=== PATIENT | male | born 1990 | race Caucasian/White ===

== ENCOUNTER 2018-03-24 10:39 | Emergency (ER) | payer OTHER ==
[2018-03-24 13:38] VITALS: BP 126/80
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
== END 2018-03-24 14:51 | disposition home or self-care (01) ==
LOC: UCCORT 10:39
DX: S16.1XXA Strain of muscle, fascia and tendon at neck level, initial encounter (principal); V47.5XXA Car driver injured in collision with fixed or stationary object in traffic accident, initial encounter; Y92.410 Unspecified street and highway as the place of occurrence of the external cause; M25.512 Pain in left shoulder; M25.562 Pain in left knee; F17.200 Nicotine dependence, unspecified, uncomplicated
CPT/HCPCS: 71046; 72125; 99201; G0463